=== PATIENT | female | born 1995 | race African-American/Black ===

== ENCOUNTER 2020-08-31 22:34 | Emergency (ER) | payer OTHER | END 2020-08-31 23:11 | disposition home or self-care (01) | LOC: CSHERS 22:34 | DX: M54.5 Low back pain (principal) | CPT/HCPCS: 99283 ==

== ENCOUNTER 2021-05-03 00:42 | Emergency (ER) | payer OTHER ==
[2021-05-03] MEDS ORDERED: predniSONE 20 MG TAB ONE ×2 (02:34)
[2021-05-03] MEDS ORDERED: Acetaminophen 500 MG TAB ONE (02:35)
== END 2021-05-03 02:42 | disposition home or self-care (01) ==
LOC: CSHERS 00:42
DX: H02.843 Edema of right eye, unspecified eyelid (principal); M79.642 Pain in left hand
CPT/HCPCS: J7512

== ENCOUNTER 2022-11-25 23:31 | Emergency (ER) | payer OTHER ==
[2022-11-26] MEDS ORDERED: Ibuprofen 200 MG TAB ONE (00:45)
[2022-11-26] MEDS ORDERED: Dexamethasone 10 MG/ML VIAL ONE (00:45)
== END 2022-11-26 01:04 | disposition home or self-care (01) ==
LOC: CSHERS 23:31
DX: J02.9 Acute pharyngitis, unspecified (principal); B34.9 Viral infection, unspecified
CPT/HCPCS: 87081; 87430; 99283; J1100